=== PATIENT | female | born 1995 | race Caucasian/White ===

== ENCOUNTER 2016-08-19 18:05 | Emergency (ER) | payer MEDICAID, OTHER ==
[2016-08-19 18:43] VITALS: BP 91/76
[2016-08-19] MEDS ORDERED: Acetaminophen TAB* 325 MG PO ONE (19:41)
--- NOTE | 2016-08-19 19:53 | RAD ---
INDICATION: Left wrist injury. TECHNIQUE: 3 views of the left wrist were obtained. FINDINGS: The bones are in normal alignment. No fracture is seen. Joint spaces appear maintained. IMPRESSION: NO EVIDENCE FOR FRACTURE.
--- NOTE | 2016-08-19 20:01 | ED ---
Upper Extremity Pain - HPI Summary HPI Summary: 21 F presents with left wrist pain that started today. 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 She denies any previous injury to the wrist. She denies any numbness or tingling. She is right handed. - History of Current Complaint Chief Complaint: EDExtremityUpper Stated Complaint: LT WRIST INJURY Time Seen by Provider: 08/19/16 19:16 - Allergies/Home Medications Allergies/Adverse Reactions: Allergies Allergy/AdvReac Type Severity Reaction Status Date / Time Bee Venom Allergy Severe Anaphylatic Verified 06/25/16 19:19 Shock PMH/Surg Hx/FS Hx/Imm Hx Endocrine/Hematology History: Denies: Hx Diabetes Respiratory History: Reports: Hx Pneumonia History: Reports: Other Problems/Disorders - H/O UTI Psychiatric History: Reports: Other Psychiatric Issues/Disorders - post depression 2013 - Surgical History Surgery Procedure, Year, and Place: tosilectomy, 2009. Cysts on top of mouth, 2006. Ovarian cyst, 2011 Hx Anesthesia Reactions: No - Immunization History Date of Tetanus Vaccine: unk Date of Influenza Vaccine: unk Infectious Disease History: No Infectious Disease History: Denies: Traveled Outside the [place] in Last 30 Days - Family History Known Family History: Positive: None, Hypertension, Diabetes, Other - hyperlipidemia Family History: R & n/C - Social History Alcohol Use: None Hx Substance Use: No Substance Use Type: Reports: None Hx Tobacco Use: Yes Smoking Status (MU): Current Some Day Smoker Review of Systems Negative: Fever Negative: Chest Pain Negative: Shortness Of Breath Positive: Myalgia - left wrist pain All Other Systems Reviewed And Are Negative: Yes Physical Exam Triage Information Reviewed: Yes Vital Signs On Initial Exam: Initial Vitals Temp Pulse Resp BP Pulse Ox 98.1 F 86 16 91/76 100 08/19/16 18:39 08/19/16 18:39 08/19/16 18:39 08/19/16 18:39 08/19/16 18:39 Vital Signs Reviewed: Yes Appearance: Positive: Well-Appearing Skin: Positive: Warm, Dry Head/Face: Positive: Normal Head/Face Inspection Eyes: Positive: Normal, Conjunctiva Clear ENT: Positive: Normal ENT inspection, Pharynx normal, TMs normal Respiratory/Lung Sounds: Positive: Clear to Auscultation, Breath Sounds Present Cardiovascular: Positive: Normal, RRR Musculoskeletal: Positive: Strength/ROM Intact - of elbow and fingers without pain, Limited @ - wrist due to pain, Other - no obvious deformity, good pulse, capillary refill <2secs, sensation grossly intact, limited ROM due to pain Diagnostics - Vital Signs Vital Signs Temp Pulse Resp BP Pulse Ox 08/19/16 18:39 98.1 F 86 16 91/76 100 - Laboratory Lab Statement: Any lab studies that have been ordered have been reviewed, and results considered in the medical decision making process. - Radiology wrist left Xray Interpretation: No Acute Changes Radiology Interpretation Completed By: Radiologist Course/Dx - Course Course Of Treatment: 21 F presents with left wrist injury s/p patient grabbed wrist and twisted it at work. neurovascular intact, xray normal, limited ROM of wrist. will treat as sprain, placed in brace, patient agrees with plan - Diagnoses Differential Diagnosis/HQI/PQRI: Positive: Contusion, Fracture (Closed), Strain , Sprain Provider Diagnoses: Left wrist pain Discharge - Discharge Plan Condition: Good Disposition: LAW ENFORCEMENT/COURT Patient Education Materials: Wrist Sprain (ED) Forms: *Work Release Referrals: Stephen Charlton RPA [Primary Care Provider] - Additional Instructions: Take Tylenol or ibuprofen every 6 hours as needed for pain Apply ice, rest, elevate Follow up with primary care physician within 5 days Return to ED if develop numbness, tingling, inability to move joint, or any new or worsening symptoms
== END 2016-08-19 20:13 ==
LOC: ED 18:05
DX: M25.532 Pain in left wrist (principal); Z72.0 Tobacco use
CPT/HCPCS: 99281; A9270-GY

== ENCOUNTER 2017-05-30 17:57 | Emergency (ER) | payer MEDICAID, OTHER ==
[2017-05-30] MEDS ORDERED: NS 0.9% 1000 ML* 1,000 ML IV ONE (19:54)
--- NOTE | 2017-05-30 20:02 | ED ---
HPI Chest Pain - HPI Summary HPI Summary: Pt here w/ CP since this morning. Noticed when she first went to take a deep breath - sharp pain in central/left chest - radiates to back/shoulder blade at times. At rest, 3/10 aching. With deep breath, 6/10 and feels pressure/ heaviness on her chest along with needle sensation over affected area. Has some pulling with over head reaching but not same pain she's feeling in chest. Has sensation of shortness of breath but denies cough, hemoptysis. Face feels flushed but denies fever, chills, N/V/D. No ab pain - has had GERD for many months throughout her - unchanged today. Had bronchitis 1-2 months ago - had anbx and albuterol - sx resolved. In regards to pregnancies, no issues during either. Has felt fetus moving but admits past few days it seems to be less. Denies vaginal d/c, spotting, urinary sx. Has body aches from time to time but she's become accustomed to this during . She smokes about 5 cigs per day but admits she couldn't even finish 1 today as pain with inhalation outweighed satisfaction of smoking. - History of Current Complaint Chief Complaint: EDShortnessOfBreath Time Seen by Provider: 05/30/17 19:32 Hx Obtained From: Patient Pain Intensity: 8 - Additional Pertinent History Primary Care Physician: [id number] - Allergy/Home Medications Allergies/Adverse Reactions: Allergies Allergy/AdvReac Type Severity Reaction Status Date / Time Bee Venom Allergy Severe Anaphylatic Verified 05/13/17 14:43 Shock PMH/Surg Hx/FS Hx/Imm Hx Previously Healthy: Yes Endocrine/Hematology History: Reports: Hx Anemia - takes vitamin and iron supplement Denies: Hx Anticoagulant Therapy, Hx Blood Disorders, Hx Diabetes, Hx Thyroid Disease, Hx Unexplained Bleeding, Autoimmune Disease Cardiovascular History: Denies: Hx Aneurysm, Hx Angina, Hx Cardiac Arrest, Hx Congenital Heart Disease, Hx Congestive Heart Failure, Hx Coronary Artery Disease, Hx Deep Vein Thrombosis, Hx Hypertension, Hx Myocardial Infarction, Hx Rheumatic Fever, Hx Syncope, Hx Valvular Heart Disease Respiratory History: Reports: Hx Pneumonia Denies: Hx Asthma, Hx Chronic Obstructive Pulmonary Disease (COPD) GI History: Reports: Hx Gastroesophageal Reflux Disease - during History: Reports: Other Problems/Disorders - H/O UTI Musculoskeletal History: Denies: Hx Arthritis, Hx Back Problems Psychiatric History: Reports: Other Psychiatric Issues/Disorders - post depression 2013 - Surgical History Surgery Procedure, Year, and Place: tosilectomy, 2009. Cysts on top of mouth, 2006. Ovarian cyst, 2011 Hx Anesthesia Reactions: No - Immunization History Date of Tetanus Vaccine: unk Date of Influenza Vaccine: unk Infectious Disease History: No Infectious Disease History: Denies: Traveled Outside the [place] in Last 30 Days - Family History Known Family History: Positive: Hypertension, Diabetes, Other - hyperlipidemia - Social History Lives: With Family Alcohol Use: None Hx Substance Use: No Substance Use Type: Reports: None Hx Tobacco Use: Yes Smoking Status (MU): Current Some Day Smoker Type: Cigarettes Amount Used/How Often: 5 cigs per day Have You Smoked in the Last Year: Yes Review of Systems Constitutional: Negative Negative: Fever, Chills, Fatigue ENT: Negative Negative: Dental Pain, Sore Throat, Ear Ache, Nasal Discharge Positive: Chest Pain. Negative: Palpitations Positive: Shortness Of Breath. Negative: Cough Gastrointestinal: Negative Negative: Abdominal Pain, Vomiting, Diarrhea, Nausea Genitourinary: Negative Musculoskeletal: Other - see HPI Negative: Decreased ROM, Edema Skin: Negative Negative: Rash, Bruising Neurological: Negative Negative: Headache, Weakness, Paresthesia, Numbness, Syncope, Slurred Speech Psychological: Normal All Other Systems Reviewed And Are Negative: Yes Physical Exam Triage Information Reviewed: Yes Vital Signs On Initial Exam: Initial Vitals Temp Pulse Resp BP Pulse Ox 98.4 F 104 19 123/70 98 05/30/17 17:59 05/30/17 17:59 05/30/17 17:59 05/30/17 17:59 05/30/17 17:59 Vital Signs Reviewed: Yes Appearance: Positive: Well-Appearing, No Pain Distress, Well-Nourished Skin: Positive: Warm, Dry - no erythema, no ecchymosis over affected area Head/Face: Positive: Normal Head/Face Inspection Eyes: Positive: Normal, EOMI, Conjunctiva Clear - anicteric sclera ENT: Positive: Normal ENT inspection, Hearing grossly normal, Pharynx normal - mucosa moist, TMs normal. Negative: Nasal congestion, Nasal drainage Neck: Positive: Supple, Nontender, No Lymphadenopathy Respiratory/Lung Sounds: Positive: Clear to Auscultation, Breath Sounds Present. Negative: Decreased Breath Sounds, Rales, Rhonchi, Subcutaneous Emphysema, Stridor, Tracheal Deviation, Wheezes Cardiovascular: Positive: Normal, RRR, Pulses are Symmetrical in both Upper and Lower Extremities, S1, S2. Negative: Murmur, Rub, Leg Edema Left, Leg Edema Right - (-) Dalia's B/L Abdomen Description: Positive: Nontender, Soft - ab Bowel Sounds: Positive: Present Pelvic Exam: Positive: other - deferred Musculoskeletal: Positive: Normal, Strength/ROM Intact Neurological: Positive: Normal, Sensory/Motor Intact, Alert, Oriented to Person Place, Time, CN Intact II-III Psychiatric: Positive: Normal - [place] Coma Scale Coma Scale Total: 15 Diagnostics - Vital Signs Vital Signs Temp Pulse Resp BP Pulse Ox 05/30/17 19:01 22 05/30/17 19:00 105 14 121/67 98 05/30/17 18:46 105 21 112/57 98 05/30/17 18:38 115 126/73 97 05/30/17 17:59 98.4 F 104 19 123/70 98 - Laboratory Result Diagrams: 05/30/17 20:45 05/30/17 20:45 Lab Statement: Any lab studies that have been ordered have been reviewed, and results considered in the medical decision making process. Chest Pain Course/Dx - Course Course Of Treatment: 37 week pt here w/ sudden onset Lt side chest pain that started after deep breath this morning. She also has tachycardia , sensation of SOB and smokes. Labs are unremarkable for infection, anemia, thyroid dysfunction, dehydration. Unfortunately her Ddimer is elevated and w/ neg LE U/S's. Discussed w/ Dr. Trimble and Dr. Vance as well as Dr. De Guzman. All agree pt may benefit from CT scan chest to assess for PE. Discussed this option with the pt as well as risks and benefits of performing and not performing. She opted to have the CTA and signed consent. CTA was negative for PE as well as other acute pathologies. Pt aware of results. Discussed this could be NIDA, possibly muscle strain or rib displacement especially since it happened with a deep breath. She will f/u as directed and Monitor for danger s/ sx of when to return to ED. - Diagnoses Provider Diagnoses: Chest pain of uncertain etiology Discharge - Discharge Plan Condition: Stable Disposition: HOME Patient Education Materials: Chest Pain (ED) Referrals: No Primary Care Phys,NOPCP [Primary Care Provider] - Additional Instructions: The definitive cause of your chest pain was not identified tonight however life threatening causes were ruled out. You may have a muscle strain here or a rib displacement - you may follow-up with a body work specialist to further assess - make sure they are certified to treat patients. You may try heat/ice/ stretches and acetaminophen for pain control. Follow-up with PCP this week. Call Wednesday to schedule an appointment. *if symptoms persist or worsen return to ED
[2017-05-30 21:01] LABS: Hematocrit 31 % (35-47); Hemoglobin 10.4 g/dl (12.0-16.0); Mean Corpuscular HGB Conc 34 g/dl (31-36); Mean Corpuscular Hemoglobin 30 pg (27-31); Mean Corpuscular Volume 89 fL (80-97); Mean Platelet Volume 9 um3 (7.4-10.4); Red Blood Count 3.48 10^6/ul (4.0-5.4); Red Cell Distribution Width 13 % (10.5-15); White Blood Count 11.7 10^3/ul (3.5-10.8)
[2017-05-30 21:11] LABS: Urine Bacteria Absent (Absent); Urine Bilirubin Negative (Negative); Urine Glucose Negative (Negative); Urine Nitrite Negative (Negative)
[2017-05-30 21:19] LABS: Albumin 3.6 g/dL (3.2-5.2); Calcium 9.3 mg/dL (8.6-10.3); EGFR African American 162.3 (>60); EGFR Non-African American 126.2 (>60); Magnesium 1.9 mg/dL (1.9-2.7); Potassium 4.2 mmol/L (3.5-5.0); Total Bilirubin 0.3 mg/dL (0.2-1.0); Total Protein 6.6 g/dL (6.4-8.9)
--- NOTE | 2017-05-30 21:19 | RAD ---
INDICATION: Pain and swelling. 37 weeks COMPARISON: None TECHNIQUE: Duplex interrogation of the Lowerextremity was performed. FINDINGS: Deep veins: The common femoral, great saphenous, profunda femoris, proximal, mid, and distal deep femoral, popliteal, posterior tibial, and peroneal veins are patent. There is normal compressibility, augmentation, and phasic flow. Superficial veins: There are no findings of superficial thrombophlebitis. Popliteal fossa:There is no evidence of a popliteal cyst. Soft tissues:There are no soft tissue abnormalities. Other: There is mild venous stasis likely related to status. IMPRESSION: No evidence of deep venous thrombosis
[2017-05-30 21:47] LABS: TSH (Thyroid Stimulating Horm) 1.82 mcIU/mL (0.34-5.60)
[2017-05-30] MEDS ORDERED: Iohexol 350* (CONTRAST) 500 ML MDV IV ONE (22:09)
[2017-05-30 23:05] VITALS: BP 122/70
[2017-05-30] MEDS ORDERED: Acetaminophen TAB* 325 MG PO ONE (23:25)
--- NOTE | 2017-05-31 07:56 | RAD ---
INDICATION: Chest pain, shortness of breath, tachycardia, , smoker. COMPARISON: Comparison is made with a prior chest x-ray study from October 24, [address] of the chest from November 05, 2008. TECHNIQUE: A CT angiogram of the chest was performed with intravenous following intravenous injection of 82 ml of Omnipaque 350 nonionic contrast. Contiguous axial sections were obtained from the lung apices through the lung bases. Images were reconstructed in the coronal and sagittal planes. FINDINGS: There is suboptimal opacification of the pulmonary arteries limiting the exam slightly. No intraluminal filling defect or pulmonary embolism is seen. The heart is within normal limits in size. No pericardial effusion is present. The thoracic aorta is normal in caliber and demonstrates homogeneous contrast opacification. There is increased soft tissue density in the anterior mediastinum which is less prominent than on the prior study most consistent with residual thymus tissue. No enlarged mediastinal or hilar lymph nodes are seen. There is a small hiatal hernia. There is mild dependent bilateral lower lobe subsegmental atelectasis. No pleural effusion is seen. No significant focal osseous abnormality is seen. IMPRESSION: SLIGHTLY LIMITED EXAM, NO EVIDENCE FOR PULMONARY EMBOLISM.
== END 2017-05-30 23:49 | disposition home or self-care (01) ==
LOC: ED 17:57
DX: R07.9 Chest pain, unspecified (principal); R06.02 Shortness of breath; Z72.0 Tobacco use
CPT/HCPCS: 36415; 71275; 80053; 81003; 81015; 82150; 83605; 83690; 83735; 83880; 84443; 84484; 85025; 85379; 85610; 85730; 87086; 93005; 93970; 99283; A9270-GY; Q9967

== ENCOUNTER 2017-06-22 07:43 | Inpatient (IN) | payer OTHER ==
[2017-06-22 09:21] LABS: Hematocrit 30 % (35-47); Hemoglobin 10.4 g/dl (12.0-16.0); Mean Corpuscular HGB Conc 35 g/dl (31-36); Mean Corpuscular Hemoglobin 31 pg (27-31); Mean Corpuscular Volume 89 fL (80-97); Mean Platelet Volume 9 um3 (7.4-10.4); Red Blood Count 3.39 10^6/ul (4.0-5.4); Red Cell Distribution Width 13 % (10.5-15); White Blood Count 10.9 10^3/ul (3.5-10.8)
[2017-06-22] MEDS ORDERED: Oxytocin in LR* 20 UNITS/1,000 ML BAG IVPB SCH ×2 (10:00→20:00)
[2017-06-22] MEDS ORDERED: OBEPIDURAL* 250 ML ONE (14:42)
[2017-06-22] MEDS ORDERED: Phenylephrine IV* 40 MCG/ML 10 ML SYRINGE IV PUSH PRN ×2 (17:22)
[2017-06-22] MEDS ORDERED: Sodium Citrate/Citric Acid* 15 ML UDC PO PRN (17:22)
[2017-06-22] MEDS ORDERED: Famotidine TAB* 20 MG PO PRN (17:22)
[2017-06-22] MEDS ORDERED: EPHEDrine (Pressors)* 50 MG/ML VIAL IV PUSH PRN ×2 (17:22)
[2017-06-22] MEDS ORDERED: OBEPIDURAL* 250 ML EPIDURAL SCH (18:00)
[2017-06-22] MEDS ORDERED: Lidocaine 1% MPF* 2 ML VIAL ONE (18:53)
[2017-06-22] MEDS ORDERED: Witch Hazel PAD* JAR TOPICAL PRN (19:01)
[2017-06-22] MEDS ORDERED: Dibucaine 1% 28.35 GM TUBE PR PRN (19:01)
[2017-06-22] MEDS ORDERED: Glycerin ADULT SUPP PR PRN (19:01)
[2017-06-22] MEDS ORDERED: Acetaminophen TAB* 325 MG PO PRN (19:01)
[2017-06-22] MEDS ORDERED: Simethicone TAB* 80 MG TAB.CHEW PO SCH (21:00)
[2017-06-22] MEDS: Docusate CAP* 100 MG PO SCH (21:34)
[2017-06-23] MEDS: Ibuprofen TAB* 600 MG PO PRN ×3 (03:59→15:41)
[2017-06-23] MEDS: Docusate CAP* 100 MG PO SCH ×3 (10:04→20:40)
[2017-06-23] MEDS: Ferrous Gluconate TAB* 324 MG TAB PO SCH ×2 (10:05→20:36)
[2017-06-23 10:38] LABS: Hematocrit 30 % (35-47); Mean Corpuscular HGB Conc 34 g/dl (31-36); Mean Corpuscular Hemoglobin 30 pg (27-31); Mean Corpuscular Volume 89 fL (80-97); Mean Platelet Volume 9 um3 (7.4-10.4); Red Blood Count 3.36 10^6/ul (4.0-5.4); Red Cell Distribution Width 14 % (10.5-15)
[2017-06-24] MEDS: Ibuprofen TAB* 600 MG PO PRN ×2 (00:49→09:01)
[2017-06-24] MEDS: Docusate CAP* 100 MG PO SCH (08:44)
[2017-06-24 09:17] VITALS: BP 133/77
[2017-06-24] MEDS: Ferrous Gluconate TAB* 324 MG TAB PO SCH (12:31)
== END 2017-06-24 13:16 | disposition home or self-care (01) | DRG 560 ==
LOC: MCHOBOUT 07:43 → MCHOB 10:19
PROVIDERS: ADMIT Midwife; ATTEND Midwife
PROC: 10907ZC Drainage of Amniotic Fluid, Therapeutic from Products of Conception, Via Natural or Artificial Opening (ICD-10-PCS; principal; 2017-06-22)
PROC: 10E0XZZ Delivery of Products of Conception, External Approach (ICD-10-PCS; 2017-06-22)
PROC: 4A1HX4Z Monitoring of Products of Conception, Cardiac Electrical Activity, External Approach (ICD-10-PCS; 2017-06-22)
PROC: 3E033VJ Introduction of Other Hormone into Peripheral Vein, Percutaneous Approach (ICD-10-PCS; 2017-06-22)
DX: O16.4 Unspecified maternal hypertension, complicating childbirth (principal); F17.200 Nicotine dependence, unspecified, uncomplicated; O48.0 Post-term pregnancy; O99.334 Smoking (tobacco) complicating childbirth; Z14.1 Cystic fibrosis carrier; Z3A.40 40 weeks gestation of pregnancy; Z37.0 Single live birth
CPT/HCPCS: 36415; 85025; 85027; 86850; 86900; 86901; A9270-GY

== ENCOUNTER 2017-07-10 00:30 | Emergency (ER) | payer OTHER ==
[2017-07-10] MEDS ORDERED: Morphine INJ* 4 MG/ML 1 ML CARPUJECT IV ONE (01:42)
[2017-07-10] MEDS ORDERED: Ondansetron INJ* 2 MG/ML VIAL IV ONE (01:43)
[2017-07-10] MEDS ORDERED: NS 0.9% 1000 ML* 1,000 ML IV ONE (01:43)
[2017-07-10] MEDS ORDERED: Ondansetron INJ* 2 MG/ML VIAL ONE (01:45)
[2017-07-10] MEDS ORDERED: Morphine INJ* 4 MG/ML 1 ML CARPUJECT ONE (01:45)
[2017-07-10 02:08] LABS: Hematocrit 36 % (35-47); Hemoglobin 11.8 g/dl (12.0-16.0); Mean Corpuscular HGB Conc 33 g/dl (31-36); Mean Corpuscular Hemoglobin 30 pg (27-31); Mean Corpuscular Volume 89 fL (80-97); Mean Platelet Volume 9 um3 (7.4-10.4); Red Blood Count 4.01 10^6/ul (4.0-5.4); Red Cell Distribution Width 14 % (10.5-15); White Blood Count 8.1 10^3/ul (3.5-10.8)
[2017-07-10 02:09] LABS: Urine Bacteria Absent (Absent); Urine Bilirubin Negative (Negative); Urine Glucose Negative (Negative); Urine Nitrite Negative (Negative)
[2017-07-10 02:21] LABS: Albumin 4.2 g/dL (3.2-5.2); BUN/Creatinine Ratio 17.2 (8-20); C Reactive Protein 37.98 mg/L (< 5.00); Calcium 9.3 mg/dL (8.6-10.3); EGFR African American 91.1 (>60); EGFR Non-African American 70.8 (>60); Globulin 3.1 g/dL (2-4); Potassium 3.7 mmol/L (3.5-5.0); Total Bilirubin 0.4 mg/dL (0.2-1.0); Total Protein 7.3 g/dL (6.4-8.9)
[2017-07-10] MEDS ORDERED: Tamsulosin CAP* 0.4 MG PO ONE (04:16)
[2017-07-10] MEDS ORDERED: Ketorolac INJ* 30 MG/ML 1 ML VIAL IV PUSH ONE (04:42)
[2017-07-10] MEDS ORDERED: Levofloxacin TAB* 500 MG PO ONE (04:45)
--- NOTE | 2017-07-10 04:50 | ED ---
Cornelio Johnson Tiffany, scribed for Parish Trimble on 07/10/17 at 0226 . Abdominal Pain/Female - HPI Summary HPI Summary: This patient is a 21 year old F presenting to [facility] accompanied by mother with a chief complaint of LLQ abdominal pain since yesterday afternoon. The patient rates the pain 10/10 in severity. Symptoms aggravated by nothing. Symptoms alleviated by nothing. Patient reports back pain and vomiting. Patient denies dysuria and fever. The patient is 3 weeks post-. The patient gave vaginally. - History of Current Complaint Chief Complaint: EDAbdPain Stated Complaint: ABD PAIN Time Seen by Provider: 07/10/17 00:53 Hx Obtained From: Patient ?: No Onset/Duration: Lasting Days - Yesterday, Still Present Severity Currently: Severe Pain Intensity: 10 Pain Scale Used: 0-10 Numeric Location: Discrete At: LLQ Aggravating Factor(s): Nothing Alleviating Factor(s): Nothing Associated Signs and Symptoms: Positive: Other: - back pain and vomiting; NEGATIVE: dysuria and fever Allergies/Adverse Reactions: Allergies Allergy/AdvReac Type Severity Reaction Status Date / Time Bee Venom Allergy Severe Anaphylatic Verified 06/16/17 11:39 Shock PMH/Surg Hx/FS Hx/Imm Hx Previously Healthy: No Endocrine/Hematology History: Reports: Hx Anemia - takes vitamin and iron supplement Denies: Hx Anticoagulant Therapy, Hx Blood Disorders, Hx Diabetes, Hx Thyroid Disease, Hx Unexplained Bleeding Cardiovascular History: Reports: Hx Hypertension - mild range pressures Denies: Hx Aneurysm, Hx Angina, Hx Cardiac Arrest, Hx Congenital Heart Disease, Hx Congestive Heart Failure, Hx Coronary Artery Disease, Hx Deep Vein Thrombosis, Hx Myocardial Infarction, Hx Rheumatic Fever, Hx Syncope, Hx Valvular Heart Disease Respiratory History: Reports: Hx Pneumonia Denies: Hx Asthma, Hx Chronic Obstructive Pulmonary Disease (COPD) GI History: Reports: Hx Gastroesophageal Reflux Disease - during History: Reports: Other Problems/Disorders - H/O UTI Musculoskeletal History: Denies: Hx Arthritis, Hx Back Problems Psychiatric History: Reports: Hx Anxiety, Other Psychiatric Issues/Disorders - post depression 2013 Denies: Hx Depression - Surgical History Surgery Procedure, Year, and Place: tosilectomy, 2009. Cysts on top of mouth, 2006. Ovarian cyst, 2011 Hx Anesthesia Reactions: No - Immunization History Date of Tetanus Vaccine: unk Date of Influenza Vaccine: unk Infectious Disease History: No Infectious Disease History: Denies: Traveled Outside the [place] in Last 30 Days - Family History Known Family History: Positive: Hypertension, Diabetes, Other - hyperlipidemia Family History: R & n/C - Social History Alcohol Use: None Hx Substance Use: No Substance Use Type: Reports: None Hx Tobacco Use: Yes Smoking Status (MU): Current Some Day Smoker Type: Cigarettes Amount Used/How Often: 5 cigs per day Have You Smoked in the Last Year: Yes Review of Systems Negative: Fever Positive: Abdominal Pain - LLQ, Vomiting Negative: dysuria Positive: Other - Back pain All Other Systems Reviewed And Are Negative: Yes Physical Exam - Summary Physical Exam Summary: Appearance: Well appearing, no pain distress Skin: warm, dry, reflects adequate perfusion Head/face: normal Eyes: EOMI, CARMEN ENT: normal Neck: supple, non-tender Respiratory: CTA, breath sounds present Cardiovascular: RRR, pulses symmetrical Abdomen: mild tenderness in LLQ Bowel: present Musculoskeletal: normal, strength/ROM intact Neuro: normal, sensory motor intact, A&Ox3 Triage Information Reviewed: Yes Vital Signs On Initial Exam: Initial Vitals Temp Pulse Resp BP Pulse Ox 97.4 F 85 18 138/92 97 07/10/17 00:34 07/10/17 00:34 07/10/17 00:34 07/10/17 00:34 07/10/17 00:34 Vital Signs Reviewed: Yes - [place] Coma Scale Coma Scale Total: 15 Diagnostics - Vital Signs Vital Signs Temp Pulse Resp BP Pulse Ox 07/10/17 01:48 16 07/10/17 00:34 97.4 F 85 18 138/92 97 - Laboratory Lab Results: Lab Results 07/10/17 07/10/17 07/10/17 Range/Units 01:34 01:34 01:37 WBC 8.1 (3.5-10.8) 10^3/ul RBC 4.01 (4.0-5.4) 10^6/ul Hgb 11.8 L (12.0-16.0) g/dl Hct 36 (35-47) % MCV 89 (80-97) fL MCH 30 (27-31) pg MCHC 33 (31-36) g/dl RDW 14 (10.5-15) % Plt Count 199 (150-450) 10^3/ul MPV 9 (7.4-10.4) um3 Neut % (Auto) 68.9 (38-83) % Lymph % (Auto) 20.0 L (25-47) % [place] % (Auto) 9.2 H (1-9) % Eos % (Auto) 1.6 (0-6) % Baso % (Auto) 0.3 (0-2) % Absolute Neuts (auto) 5.6 (1.5-7.7) 10^3/ul Absolute Lymphs (auto) 1.6 (1.0-4.8) 10^3/ul Absolute Monos (auto) 0.8 (0-0.8) 10^3/ul Absolute Eos (auto) 0.1 (0-0.6) 10^3/ul Absolute Basos (auto) 0 (0-0.2) 10^3/ul Absolute Nucleated RBC 0 10^3/ul Nucleated RBC % 0 Sodium 138 (133-145) mmol/L Potassium 3.7 (3.5-5.0) mmol/L Chloride 104 (101-111) mmol/L Carbon Dioxide 26 (22-32) mmol/L Anion Gap 8 (2-11) mmol/L BUN 17 (6-24) mg/dL Creatinine 0.99 H (0.51-0.95) mg/dL Est GFR ( Amer) 91.1 (>60) Est GFR (Non-Af Amer) 70.8 (>60) BUN/Creatinine Ratio 17.2 (8-20) Glucose 106 H (70-100) mg/dL Calcium 9.3 (8.6-10.3) mg/dL Total Bilirubin 0.40 (0.2-1.0) mg/dL AST 21 (13-39) U/L ALT 18 (7-52) U/L Alkaline Phosphatase 110 H (34-104) U/L C-Reactive Protein 37.98 H (< 5.00) mg/L Total Protein 7.3 (6.4-8.9) g/dL Albumin 4.2 (3.2-5.2) g/dL Globulin 3.1 (2-4) g/dL Albumin/Globulin Ratio 1.4 (1-3) Lipase 17 (11.0-82.0) U/L Beta HCG, Quant Pending Urine Color Yellow Urine Appearance Cloudy Urine pH 5.0 (5-9) Ur Specific [place] 1.023 (1.010-1.030) Urine Protein 1+(30 mg/dl) H (Negative) Urine Ketones Negative (Negative) Urine Blood 2+ H (Negative) Urine Nitrate Negative (Negative) Urine Bilirubin Negative (Negative) Urine Urobilinogen Negative (Negative) Ur Leukocyte Esterase 3+ H (Negative) Urine WBC (Auto) 3+(>20/hpf) H (Absent) Urine RBC (Auto) 2+(6-10/hpf) H (Absent) Ur Squamous Epith Cells Present H (Absent) Urine Bacteria Absent (Absent) Urine Glucose Negative (Negative) Result Diagrams: 07/10/17 01:34 07/10/17 01:34 Lab Statement: Any lab studies that have been ordered have been reviewed, and results considered in the medical decision making process. - CT Abd/Pel CT Interpretation Completed By: Radiologist - Mild to moderate left hydronephrosis and hydroureter down to the bladder where there is a 0.6 cm stone at the left uretervesicular junction. Decompression/spasm in the transverse and left colon versus subtle infectious or inflammatory colitis. Mildly prominent uterus. This can be consistent with state. ED physician has reviewed this radiology report. Abdominal Pain Fem Course/Dx - Course Course Of Treatment: This patient is a 21 year old F presenting to [facility] accompanied by mother with a chief complaint of LLQ abdominal pain since yesterday afternoon. CT Abd/Pel reveals, per radiologist, Mild to moderate left hydronephrosis and hydroureter down to the bladder where there is a 0.6 cm stone at the left uretervesicular junction. Decompression/spasm in the transverse and left colon versus subtle infectious or inflammatory colitis. Mildly prominent uterus. This can be consistent with state. Bloodwork obtained. In the ED course the patient was given Toradol, Morphine, Flomax and Zofran. Patient will be discharged with prescription for Percocet, Levaquin and Flomax and follow up from PCP. The patient is agreeable with this plan. - Diagnoses Differential Diagnosis: Positive: Appendicitis, Ovarian Cyst, Renal Colic, Urinary Tract Infection Provider Diagnoses: Renal calculi Discharge - Discharge Plan Condition: Stable Disposition: HOME Prescriptions: Levofloxacin TAB* [Levaquin TAB*] 500 mg PO DAILY #7 tab oxyCODONE/Acetamin 5/325 MG* [Percocet 5/325 TAB*] 1 tab PO Q8H PRN #15 tab MDD 3 PRN Reason: Pain Tamsulosin HCl [Flomax] 0.4 mg PO ONCE #15 cap Patient Education Materials: Kidney Stones (ED) Referrals: No Primary Care Phys,NOPCP [Primary Care Provider] - Cy Conte MD [Medical Doctor] - 3 Days Additional Instructions: Follow up with Dr. Conte (urology) in 3 days. Return to the Emergency Room if current symptoms worsen or if new symptoms develop. The documentation as recorded by the Cornelio donis Tiffany accurately reflects the service I personally performed and the decisions made by Nai landrum Emmanuel.
[2017-07-10] MEDS ORDERED: oxyCODONE/Acetamin 5/325 MG* TAB PO ONE (04:53)
[2017-07-10] MEDS ORDERED: oxyCODONE/Acetamin 5/325 MG* TAB ONE (04:56)
[2017-07-10 05:00] VITALS: BP 117/65
--- NOTE | 2017-07-10 12:48 | RAD ---
Indication: Left flank pain. CT of the abdomen and pelvis was performed without oral or IV contrast administration. Coronal and sagittal reconstructed images were obtained. Lung bases demonstrate no pleural fluid, nodules or masses. Heart is of normal size without evidence of pericardial effusion. Liver is normal in size. No focal lesions or intrahepatic ductal dilatation is noted. The gallbladder demonstrates no calcified gallstones. No pericholecystic fluid or wall thickening is noted. The spleen is normal in size. The pancreas demonstrates no mass effect or ductal dilatation. The common duct is not dilated. The gallbladder demonstrates no calcified gallstones. No adrenal masses are noted. Left hydronephrosis and hydroureter is noted. There is a calculus in the distal left ureter at the left ureterovesicular junction measuring 4 mm. The right kidney shows no hydronephrosis. CT of the pelvis demonstrates no retroperitoneal or pelvic lymphadenopathy. The urinary bladder is unremarkable. No hernias are noted. The uterus is prominent in size. No adnexal masses are noted. Transverse colon demonstrates decompressed transverse and descending colon rounded mucosal edema from colitis. Clinical correlation is suggested. IMPRESSION: 4 mm calculus at the left ureterovesicular junction with mild to moderate left hydronephrosis and hydroureter. Collapsed transverse colon and descending colon. Mucosal thickening is likely due to nondistention. Clinical correlation to exclude colitis is suggested.
== END 2017-07-10 04:59 | disposition home or self-care (01) ==
LOC: ED 00:30
DX: N13.2 Hydronephrosis with renal and ureteral calculous obstruction (principal); F17.210 Nicotine dependence, cigarettes, uncomplicated
CPT/HCPCS: 36415; 74176; 80053; 81003; 81015; 83690; 84702; 85025; 86140; 87086; 99283; A9270-GY; J2270; J2405

== ENCOUNTER 2018-01-21 11:05 | Emergency (ER) | payer SELFPAY ==
[2018-01-21 11:25] VITALS: BP 113/74
--- NOTE | 2018-01-21 12:15 | RAD ---
Indication: Back pain. Injury a few months ago. Progressive worsening of pain; hurts on flexion. Comparison: July 10, 2017 CT. Technique: AP and lateral views lumbar sacral spine. Report: Alignment is anatomic. No cortical disruption or trabecular impaction to indicate a vertebral body fracture. Preserved disc spaces. Unremarkable soft tissue contours. IMPRESSION: #. Negative radiographic exam of the lumbar sacral spine.
[2018-01-21] MEDS ORDERED: Ketorolac INJ* 60 MG/2 ML VIAL IM ONE (12:25)
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
== END 2018-01-21 12:53 | disposition home or self-care (01) ==
LOC: UCEAST 11:05
DX: M54.5 Low back pain (principal); F17.210 Nicotine dependence, cigarettes, uncomplicated; Z91.030 Bee allergy status
CPT/HCPCS: 72100; 81003; 84702; 87086; 99212; G0463

== ENCOUNTER 2018-05-30 08:13 | Emergency (ER) | payer OTHER ==
[2018-05-30 08:33] VITALS: BP 134/78
[2018-05-30] MEDS ORDERED: Ibuprofen TAB* 600 MG PO ONE (09:23)
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
== END 2018-05-30 10:29 | disposition home or self-care (01) ==
LOC: UCEAST 08:13
DX: S05.12XA Contusion of eyeball and orbital tissues, left eye, initial encounter (principal); S00.81XA Abrasion of other part of head, initial encounter; S80.212A Abrasion, left knee, initial encounter; F17.210 Nicotine dependence, cigarettes, uncomplicated; Z91.030 Bee allergy status; W01.10XA Fall on same level from slipping, tripping and stumbling with subsequent striking against unspecified object, initial encounter; Y92.9 Unspecified place or not applicable
CPT/HCPCS: 70200; 99212; A9270-GY; G0463

== ENCOUNTER 2019-03-28 14:07 | Emergency (ER) | payer OTHER ==
[2019-03-28 14:19] VITALS: BP 123/74
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
== END 2019-03-28 14:52 | disposition home or self-care (01) ==
LOC: UCEAST 14:07
DX: S10.91XA Abrasion of unspecified part of neck, initial encounter (principal); S50.812A Abrasion of left forearm, initial encounter; S50.811A Abrasion of right forearm, initial encounter; W50.4XXA Accidental scratch by another person, initial encounter; Y93.F9 Activity, other caregiving; Y92.009 Unspecified place in unspecified non-institutional (private) residence as the place of occurrence of the external cause; Y99.0 Civilian activity done for income or pay; F17.210 Nicotine dependence, cigarettes, uncomplicated
CPT/HCPCS: 99212; G0463

== ENCOUNTER 2019-03-29 10:36 | Emergency (ER) | payer OTHER ==
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
[2019-03-29 15:03] VITALS: BP 122/67
== END 2019-03-29 15:01 | disposition home or self-care (01) ==
LOC: UCEAST 10:36
DX: S06.0X0A Concussion without loss of consciousness, initial encounter (principal); W50.0XXA Accidental hit or strike by another person, initial encounter; Y93.F9 Activity, other caregiving; Y92.89 Other specified places as the place of occurrence of the external cause; Y99.0 Civilian activity done for income or pay; F17.210 Nicotine dependence, cigarettes, uncomplicated
CPT/HCPCS: 70450; 84702; 99211; G0463

== ENCOUNTER 2023-01-16 08:43 | Inpatient (IN) ==
[2023-01-16] MEDS ORDERED: miSOPROStol 100 mcg TAB PO ONE ×3 (09:18→18:15)
[2023-01-16] MEDS ORDERED: Lactated Ringers 1000 ml BAG 1,000 ML IV ONE (09:18)
[2023-01-16] MEDS ORDERED: Nalbuphine 10 MG/ML 1 ML VIAL IV PRN (09:18)
[2023-01-16] MEDS ORDERED: Buffered Lidocaine 1% SYRIN 1 ml INTRADERM ONE (09:18)
[2023-01-16] MEDS ORDERED: Promethazine INJ(RESTRICTED) 25 MG/ML 1 ml VIAL IV PRN (09:18)
[2023-01-16] MEDS ORDERED: Lactated Ringers 1000 ml BAG 1,000 ML IV SCH (10:00)
[2023-01-16 10:32] LABS: Urine Benzodiazepine Screen None Detected (None Detect); Urine Cannabinoids Screen None Detected (None Detect); Urine Opiates Screen None Detected (None Detect)
[2023-01-17] MEDS ORDERED: miSOPROStol 100 mcg TAB PO ONE (01:51)
[2023-01-17] MEDS ORDERED: Oxytocin in LR 20,000 MILLI.UNIT/1,000 ML BAG IV SCH ×2 (06:45→14:30)
[2023-01-17 07:19] LABS: ABS Eosinophils 0.1 10^3/uL (0.0-0.5); ABS Monocytes 0.8 10^3/uL (0.0-0.9); ABS Neutrophils 6.8 10^3/uL (1.5-7.6); ABS Nucleated RBC 0.01 10^3/ul; Eosinophil % 0.8 %; Hematocrit 31.4 % (35-45); Hemoglobin 11.1 g/dL (11.5-14.3); Lymphocyte % 20.6 %; Mean Corpuscular Hemoglobin 32.4 pg (27-33); Mean Corpuscular Hgb Conc 35.3 g/dL (31-36); Mean Corpuscular Volume 91.7 fL (80-97); Mean Platelet Volume 8.3 fL (7.5-11.2); Nucleated Red Blood Cells % 0.1 /100 WBC (0.0-0.4); Platelet Count 204 10^3/uL (150-450); Red Blood Count 3.42 10^6/uL (3.63-4.92); Red Cell Distribution Width 13.8 % (12-17); White Blood Count 9.7 10^3/uL (3.8-11.8)
[2023-01-17] MEDS ORDERED: OBEPIDURAL (200 ML) 200 ML EPIDURAL ONE (10:07)
[2023-01-17] MEDS ORDERED: Lidocaine 1.5% EPI 1:200,000 30 ML SDV ONE (10:41)
[2023-01-17] MEDS ORDERED: Lactated Ringers 1000 ml BAG 500 ML IV PRN ×2 (11:35)
[2023-01-17] MEDS ORDERED: Lactated Ringers 1000 ml BAG 1,000 ML IV ONE (11:35)
[2023-01-17] MEDS ORDERED: Sodium Citrate/Citric Acid LIQ 15 ML UDC PO PRN (11:35)
[2023-01-17] MEDS ORDERED: Phenylephrine 40 mcg/mL 10mL (400mcg) SYRINGE IV PUSH PRN ×2 (11:35)
[2023-01-17] MEDS ORDERED: OBEPIDURAL (200 ML) 200 ML EPIDURAL SCH (12:00)
[2023-01-17] MEDS ORDERED: Lactated Ringers 1000 ml BAG 1,000 ML IV SCH ×2 (12:00→15:00)
[2023-01-17 12:10] LABS: Urine Appearance Clear; Urine Bilirubin Negative (Negative); Urine Blood Negative (Negative); Urine Color Yellow; Urine Glucose Negative (Negative); Urine Ketones Negative (Negative); Urine Nitrite Negative (Negative); Urine Protein Negative (Negative); Urine Specific Gravity 1.016 (1.002-1.030); Urine Urobilinogen Negative (Negative)
[2023-01-17] MEDS ORDERED: Glycerin ADULT 2.4 gm SUPP PR PRN (14:27)
[2023-01-17] MEDS ORDERED: Witch Hazel PAD JAR TOPICAL PRN (14:27)
[2023-01-17] MEDS ORDERED: Dibucaine 1% OINT 28.35 GM TUBE PR PRN (14:27)
[2023-01-18 07:00] LABS: ABS Eosinophils 0.1 10^3/uL (0.0-0.5); ABS Monocytes 0.7 10^3/uL (0.0-0.9); ABS Neutrophils 6.3 10^3/uL (1.5-7.6); Eosinophil % 0.7 %; Hematocrit 29.6 % (35-45); Hemoglobin 10.6 g/dL (11.5-14.3); Lymphocyte % 22.2 %; Mean Corpuscular Hemoglobin 32.5 pg (27-33); Mean Corpuscular Hgb Conc 35.6 g/dL (31-36); Mean Corpuscular Volume 91.1 fL (80-97); Mean Platelet Volume 8.3 fL (7.5-11.2); Platelet Count 190 10^3/uL (150-450); Red Blood Count 3.25 10^6/uL (3.63-4.92); White Blood Count 9.1 10^3/uL (3.8-11.8)
[2023-01-18 11:55] VITALS: BP 117/60
== END 2023-01-18 18:15 | disposition home or self-care (01) | DRG 560 ==
LOC: MCHOBOUT 08:43 → MCHOB 09:19
PROVIDERS: ADMIT Obstetrics & Gynecology; ATTEND Obstetrics & Gynecology